=== PATIENT | female | born 1965 | race Two or more races ===

== ENCOUNTER 2018-01-12 22:17 | Emergency (ER) | payer MEDICAID, OTHER ==
[~2018-01-12] VITALS: Ht 152.4 cm; Wt 54.4 kg
[2018-01-12 22:24] VITALS: BP 148/109
== END 2018-01-13 00:45 | disposition home or self-care (01) ==
LOC: ER 22:17
DX: S63.611A Unspecified sprain of left index finger, initial encounter (principal); W19.XXXA Unspecified fall, initial encounter; Y93.89 Activity, other specified; Y92.89 Other specified places as the place of occurrence of the external cause; Y99.8 Other external cause status
CPT/HCPCS: 29130; 73140